=== PATIENT | female | born 1980 | race Caucasian/White ===

== ENCOUNTER 2017-02-26 12:42 | Emergency (ER) | payer SELFPAY ==
[~2017-02-26] VITALS: Ht 167.6 cm; Wt 69.5 kg
[~2017-02-26 12:42] MED LIST: BACTDS PO; CIPR500T4 PO; CYCL-319 PO; HYDR-906 PO; IBUP400T22 PO; NAPR-260 PO; PHEN-538 PO
[2017-02-26 12:43] VITALS: Ht 167.6 cm; Wt 69.5 kg
[2017-02-26] MEDS ORDERED: KETOROLAC 60 MG INJ IM STA (13:32)
[2017-02-26] MEDS ORDERED: IBUP-1542 PO (14:33)
[2017-02-26] MEDS ORDERED: BACL10TA PO (14:33)
--- NOTE | 2017-02-26 14:38 | ERD ---
ER Documentation Chief Complaint Date/Time DATE: 02/26/17 TIME: 14:35 Chief Complaint 06/01 neck pain x 1 week ukn cause HPI 36-year-old female patient with no significant past medical history presents to the ED complaining of neck and upper back pain that started 1 year ago. Reports that she started to have worsening neck and back pain that started 5 days ago. States that she has had a previous history of rotator cuff tear. Reports that when she moves her head to the left it starts to hurt more on the right trapezius muscle. Denies any fever, chills, neck stiffness. Denies any chest pain, shortness of breath, nausea, vomiting, decreased range of motion or loss of sensation. Denies any numbness or tingling. ROS All systems reviewed and are negative except as per history of present illness. Medications Home Meds Active Scripts Ibuprofen* (Motrin*) 600 Mg Tab, 600 MG PO Q6, #30 TAB Prov:HERMELINDA DURON PA-C 02/26/17 Baclofen* (Baclofen*) 10 Mg Tablet, 10 MG PO Q8, #20 TAB Prov:HERMELINDA DURON PA-C 02/26/17 Ibuprofen* (Motrin*) 400 Mg Tab, 400 MG PO Q6, #30 TAB 0 Refills Prov:AMAYA MONTOYA PA-C 11/04/15 Phenazopyridine Hcl* (Pyridium*) 200 Mg Tab, 200 MG PO TID Y for PAIN, #9 TAB 0 Refills Prov:AMAYA MONTOYA PA-C 11/04/15 Ciprofloxacin Hcl* (Ciprofloxacin Hcl*) 500 Mg Tablet, 500 MG PO BID, #14 TAB 0 Refills Prov:AMAYA MONTOYA PA-C 11/04/15 Sulfamethoxazole-Trimethoprim* (Bactrim* DS) 800-160 Mg Tab, 1 TAB PO BID, #20 TAB Prov:SANJUANITA HOOPER DO 06/15/15 Hydrocodone Bit-Acetaminophen ([place]) 5-325 Mg Tablet, 1 TAB PO Q4H Y for PAIN, #20 TAB Prov:GREENLAQUITASANJUANITA DO 06/15/15 Naproxen* (Naprosyn*) 500 Mg Tablet, 500 MG PO BID Y for PAIN AND/OR INFLAMMATION, #30 TAB Prov:TERRY ORTIZ NP 04/10/15 Cyclobenzaprine Hcl* (Cyclobenzaprine Hcl*) 10 Mg Tablet, 5 MG PO TID, #20 TAB Prov:TERRY ORTIZPorsha MONTOYA 04/10/15 Allergies Allergies: Coded Allergies: No Known Allergy (Unverified , 02/26/17) PMhx/Soc History of Surgery: Yes (removal of ovarian cyst and breast tumor) Anesthesia Reaction: No Hx Neurological Disorder: No Hx Respiratory Disorders: No Hx Cardiac Disorders: No Hx Alcohol Use: No Hx Substance Use: No Hx Tobacco Use: No Smoking Status: Never smoker Physical Exam Vitals Vital Signs Date Time Temp Pulse Resp B/P Pulse Ox O2 Delivery O2 Flow Rate FiO2 02/26/17 12:43 99.2 76 18 125/73 96 Physical Exam Const: [id number], well-nourished. In no acute distress. Head: Atraumatic, normocephalic Eyes: Normal Conjunctiva without injection. No purulent discharge. PERRL. EOMI ENT: Normal external ear. Ear canal without erythema. Tympanic membrane pearly moran without effusion or bulging. Nasal canal clear with normal turbinates. Moist oropharynx without tonsillar exudates. Non-erythematous pharynx. Uvula midline. No drooling. No trismus. Neck: Full range of motion. No meningismus. No cervical lymphadenopathy. Tenderness to palpation of the right trapezius muscle of the neck region. Resp: Clear to auscultation bilaterally. No wheezing, rhonchi, rales, or crackles. No accessory muscle use. No retractions. Cardio: Regular rate and rhythm. No murmurs, rubs or gallops. Abd: Soft, non tender, non distended. Normal bowel sounds. No palpable masses. No rebound tenderness. No guarding. Skin: No petechiae or rashes Back: No midline tenderness. No CVA tenderness. Ext: No cyanosis, or edema. Neur: Awake and alert. Psych: Normal Mood and Affect Results 24 hrs Current Medications Medications (Trade) Dose Ordered Sig/[place] Route PRN Reason Start Time Stop Time Status Last Admin Dose Admin Ketorolac Tromethamine (Toradol) 60 mg ONCE STAT IM 02/26/17 13:32 02/26/17 13:33 DC 02/26/17 13:52 Procedures/MDM This is a 36-year-old female patient with a past medical history of chronic neck and back pain that started 1 week ago. Patient is afebrile and nontoxic- appearing. Patient has normal vital signs. Patient was given Toradol here in the ED with slight improvement of her symptoms. Patient is appropriate for outpatient management. Patient was strictly instructed to follow-up with an orthopedic physician for further evaluation and treatment. Patient likely has musculoskeletal pain. Low suspicion for acute myocardial infarction, pneumothorax, pneumonia, cardiac tamponade, pulmonary embolism, pleural effusion , AAA, aortic dissection, Boerhaave's syndrome, cardiac dysrhythmias, meningitis, intracranial bleed, seizure, stroke, TIA or other emergent conditions. Patient's extremity symptoms have stabilized while they have been evaluated in the department and are appropriate for outpatient follow up. No evidence of fractures, dislocations, compartment syndrome, neurologic injury, vascular injury, open joint, open fracture, tendon laceration, septic arthritis , osteomyelitis, DVT, foreign body, or other emergent conditions. Discharge medications: Baclofen, Ibuprofen Follow up with primary care physician in 1-2 days. Instructed patient to return to the ED sooner for any worsening symptoms. Patient's questions were answered. Patient understood and agreed with discharge plan. Patient discharged stable. Departure Diagnosis: Primary Impression: Neck pain Condition: Stable Patient Instructions: Back And Neck Pain, General Referrals: COMMUNITY CLINICS YOU HAVE RECEIVED A MEDICAL SCREENING EXAM AND THE RESULTS INDICATE THAT YOU DO NOT HAVE A CONDITION THAT REQUIRES URGENT TREATMENT IN THE EMERGENCY DEPARTMENT. FURTHER EVALUATION AND TREATMENT OF YOUR CONDITION CAN WAIT UNTIL YOU ARE SEEN IN YOUR DOCTORS OFFICE WITHIN THE NEXT 1-2 DAYS. IT IS YOUR RESPONSIBILITY TO MAKE AN APPOINTMENT FOR FOLOW-UP CARE. IF YOU HAVE A PRIMARY DOCTOR --you should call your primary doctor and schedule an appointment IF YOU DO NOT HAVE A PRIMARY DOCTOR YOU CAN CALL OUR PHYSICIAN REFERRAL HOTLINE AT IF YOU CAN NOT AFFORD TO SEE A PHYSICIAN YOU CAN CHOSE FROM THE FOLLOWING [facility] CLINICS [facility] [address] [facility] [address] [facility]. [facility] [address] [facility] [address] [facility] [address] [facility]. [facility] [address] [facility]. [facility] YOU HAVE RECEIVED A MEDICAL SCREENING EXAM AND THE RESULTS INDICATE THAT YOU DO NOT HAVE A CONDITION THAT REQUIRES URGENT TREATMENT IN THE EMERGENCY DEPARTMENT. FURTHER EVALUATION AND TREATMENT OF YOUR CONDITION CAN WAIT UNTIL YOU ARE SEEN IN YOUR DOCTORS OFFICE WITHIN THE NEXT 1-2 DAYS. IT IS YOUR RESPONSIBILITY TO MAKE AN APPOINTMENT FOR FOLOW-UP CARE. IF YOU HAVE A PRIMARY DOCTOR --you should call your primary doctor and schedule and appointment IF YOU DO NOT HAVE A PRIMARY DOCTOR YOU CAN CALL OUR PHYSICIAN REFERRAL HOTLINE AT . IF YOU CAN NOT AFFORD TO SEE A PHYSICIAN YOU CAN CHOSE FROM THE FOLLOWING [facility] INSTITUTIONS[facility] [address] [place] [address] [facility] [address] [place] [address] [facility] [address] [place] [address] [facility]SPECIALTIES Additional Instructions: Call your primary care doctor TOMORROW for an appointment during the next 2-3 days.See the doctor sooner or return here if your condition worsens before your appointment time. HERMELINDA DURON PA-C Feb 26, 2017 14:38 HERMELINDA DURON PA-C Feb 26, 2017 14:38
== END 2017-02-26 15:00 | disposition home or self-care (01) ==
LOC: FTE 12:42
DX: M54.2 Cervicalgia (principal); Z85.3 Personal history of malignant neoplasm of breast
CPT/HCPCS: 96372; J1885

== ENCOUNTER 2017-05-08 09:50 | Emergency (ER) | payer OTHER ==
[~2017-05-08] VITALS: Ht 167.6 cm; Wt 67.5 kg
[~2017-05-08 09:50] MED LIST changes: +BACL10TA PO; +IBUP-1542 PO
[2017-05-08 09:57] VITALS: Ht 167.6 cm; Wt 67.5 kg
[2017-05-08] MEDS ORDERED: morphine 4 MG/ML VIAL IV STA (10:19)
[2017-05-08] MEDS ORDERED: ONDANSETRON 4 MG INJ IV STA (10:19)
[2017-05-08 10:54] LABS: BASOPHIL # 0.1 10^3/ul (0.0-0.1); EOSINOPHILS # 0.2 10^3/ul (0.0-0.5); EOSINOPHILS % 4.4 % (0.0-7.0); HEMATOCRIT 39.8 % (37.0-47.0); LYMPHOCYTES # 1.7 10^3/ul (0.8-2.9); LYMPHOCYTES % 36.1 % (15.0-51.0); MEAN CORPUSCULAR HEMOGLOBIN 31.1 pg (29.0-33.0); MEAN CORPUSCULAR HGB CONC 32.7 g/dl (32.0-37.0); MEAN CORPUSCULAR VOLUME 95.2 fl (82.0-101.0); MEAN PLATELET VOLUME 9.8 fl (7.4-10.4); MONOCYTE # 0.4 10^3/ul (0.3-0.9); MONOCYTES % 7.3 % (0.0-11.0); NEUTROPHIL # 2.4 10^3/ul (1.6-7.5); PLATELET COUNT 341 10^3/UL (140-415); RED BLOOD COUNT 4.18 10^6/ul (4.20-5.40); RED CELL DISTRIBUTION WIDTH 13.5 % (11.5-14.5); WHITE BLOOD COUNT 4.8 10^3/ul (4.8-10.8)
[2017-05-08 10:54] LABS: ADD UMIC NO; UR ASCORBIC ACID NEGATIVE (NEGATIVE); UR BILIRUBIN (Dip) NEGATIVE (NEGATIVE); UR BLOOD (Dip) NEGATIVE (NEGATIVE); UR CLARITY CLEAR (CLEAR); UR COLOR YELLOW (YELLOW); UR GLUCOSE (Dip) NEGATIVE (NEGATIVE); UR KETONES (Dip) NEGATIVE (NEGATIVE); UR LEUKOCYTE ESTERASE (Dip) NEGATIVE Leu/ul (NEGATIVE); UR NITRITE (Dip) NEGATIVE (NEGATIVE); UR SPECIFIC GRAVITY (Dip) 1.017 (1.003-1.030); UR TOTAL PROTEIN (Dip) NEGATIVE (NEGATIVE); UR UROBILINOGEN (Dip) NEGATIVE (NEGATIVE)
--- NOTE | 2017-05-08 11:03 | ERD ---
ER Documentation Chief Complaint Date/Time DATE: 05/08/17 TIME: 11:02 Chief Complaint ABDOMINAL PAIN, LOWER BACK PAIN X 3 DAYS HPI This is a 36-year-old female presenting to emergency department with midline lower back pain and lower abdominal pain 3 days. Patient states she is having constant, throbbing 8/10 mid lower back pain for several weeks and worsening of pain over the last 3 days. Patient states she also has suprapubic pelvic pain and lower abdominal pain for the last 3 days. Patient states she has had intermittent urinary incontinence and this is new for her. Patient has never been . Patient denies vomiting or diarrhea. No constipation. Last bowel movement was this morning. Last menstrual period 3-4 days ago. Patient states her menstrual cycles have been heavier and more painful than usual. ROS All systems reviewed and are negative except as per history of present illness. Medications Home Meds Active Scripts Ibuprofen* (Motrin*) 600 Mg Tab, 600 MG PO Q6, #30 TAB Prov:ARIANNA GARLAND NP 05/08/17 Hydrocodone/Acetaminophen ([place] 5-325 Tablet) 1 Each Tablet, 1 TAB PO Q6H Y for PAIN, #15 TAB Prov:ARIANNA GARLAND NP 05/08/17 Ibuprofen* (Motrin*) 600 Mg Tab, 600 MG PO Q6, #30 TAB Prov:HERMELINDA DURON PA-C 02/26/17 Baclofen* (Baclofen*) 10 Mg Tablet, 10 MG PO Q8, #20 TAB Prov:HERMELINDA DURON PA-C 02/26/17 Ibuprofen* (Motrin*) 400 Mg Tab, 400 MG PO Q6, #30 TAB 0 Refills Prov:AMAYA MONTOYA PA-C 11/04/15 Phenazopyridine Hcl* (Pyridium*) 200 Mg Tab, 200 MG PO TID Y for PAIN, #9 TAB 0 Refills Prov:AMAYA MONTOYA PA-C 11/04/15 Ciprofloxacin Hcl* (Ciprofloxacin Hcl*) 500 Mg Tablet, 500 MG PO BID, #14 TAB 0 Refills Prov:AMAYA MONTOYA PA-C 11/04/15 Sulfamethoxazole-Trimethoprim* (Bactrim* DS) 800-160 Mg Tab, 1 TAB PO BID, #20 TAB Prov:SANJUANITA HOOPER DO 06/15/15 Hydrocodone Bit-Acetaminophen ([place]) 5-325 Mg Tablet, 1 TAB PO Q4H Y for PAIN, #20 TAB Prov:SANJUANITA HOOPER DO 06/15/15 Naproxen* (Naprosyn*) 500 Mg Tablet, 500 MG PO BID Y for PAIN AND/OR INFLAMMATION, #30 TAB Prov:TERRY ORTIZ BREWING DIRECTOR 04/10/15 Cyclobenzaprine Hcl* (Cyclobenzaprine Hcl*) 10 Mg Tablet, 5 MG PO TID, #20 TAB Prov:TERRY ORTIZ BREWING DIRECTOR 04/10/15 Allergies Allergies: Coded Allergies: No Known Allergy (Unverified , 05/08/17) PMhx/Soc Medical and Surgical Hx: pt denies Medical Hx, pt denies Surgical Hx History of Surgery: Yes (removal of ovarian cyst and breast tumor) Anesthesia Reaction: No Hx Neurological Disorder: No Hx Respiratory Disorders: No Hx Cardiac Disorders: No Hx Alcohol Use: Yes (rarely) Hx Substance Use: No Hx Tobacco Use: No Smoking Status: Never smoker Physical Exam Vitals Vital Signs Date Time Temp Pulse Resp B/P Pulse Ox O2 Delivery O2 Flow Rate FiO2 05/08/17 17:11 98.7 61 18 115/75 98 Room Air 05/08/17 13:37 98.1 57 18 114/7 97 05/08/17 09:57 97.8 68 20 115/56 97 Physical Exam Const: No acute distress, alert Head: Atraumatic Eyes: Normal Conjunctiva ENT: Normal External Ears, Nose and Mouth. Neck: Full range of motion..~ No meningismus. Resp: Clear to auscultation bilaterally. No wheezing, rhonchi or crackles. Cardio: Regular rate and rhythm, no murmurs Abd: Soft, Suprapubic tenderness, non distended. Normal bowel sounds Skin: No petechiae or rashes Back: Midline lower spine tenderness.No CVA tenderness Ext: No cyanosis, or edema Neur: Awake and alert Psych: Normal Mood and Affect Result Diagram: 05/08/17 1039 05/08/17 1039 Results 24 hrs Laboratory Tests Test 05/08/17 10:36 05/08/17 10:39 Urine Color YELLOW Urine Clarity CLEAR Urine pH 7.0 Urine Specific [place] 1.017 Urine Ketones NEGATIVEmg/dL Urine Nitrite NEGATIVEmg/dL Urine Bilirubin NEGATIVEmg/dL Urine Urobilinogen NEGATIVEmg/dL Urine Leukocyte Esterase NEGATIVELeu/ul Urine Hemoglobin NEGATIVEmg/dL Urine Glucose NEGATIVEmg/dL Urine Total Protein NEGATIVEmg/dl White Blood Count 4.810^3/ul Red Blood Count 4.1810^6/ul Hemoglobin 13.0g/dl Hematocrit 39.8% Mean Corpuscular Volume 95.2fl Mean Corpuscular Hemoglobin 31.1pg Mean Corpuscular Hemoglobin Concent 32.7g/dl Red Cell Distribution Width 13.5% Platelet Count 25762^3/UL Mean Platelet Volume 9.8fl Neutrophils % 51.0% Lymphocytes % 36.1% Monocytes % 7.3% Eosinophils % 4.4% Basophils % 1.0% Nucleated Red Blood Cells % 0.0/100WBC Neutrophils # 2.410^3/ul Lymphocytes # 1.710^3/ul Monocytes # 0.410^3/ul Eosinophils # 0.210^3/ul Basophils # 0.110^3/ul Nucleated Red Blood Cells # 0.010^3/ul Sodium Level 140mmol/L Potassium Level 4.3mmol/L Chloride Level 109mmol/L Carbon Dioxide Level 26mmol/L Anion Gap 9 Blood Urea Nitrogen 12mg/dl Creatinine 0.72mg/dl Glucose Level 116mg/dl Calcium Level 9.3mg/dl Total Bilirubin 0.3mg/dl Direct Bilirubin 0.00mg/dl Indirect Bilirubin 0.3mg/dl Aspartate Amino Transf (AST/SGOT) 18IU/L Alanine Aminotransferase (ALT/SGPT) 36IU/L Alkaline Phosphatase 51IU/L Total Protein 6.6g/dl Albumin 4.0g/dl Globulin 2.60g/dl Albumin/Globulin Ratio 1.53 Lipase 78U/L Current Medications Medications (Trade) Dose Ordered Sig/[place] Route PRN Reason Start Time Stop Time Status Last Admin Dose Admin Morphine Sulfate (morphine) 4 mg ONCE STAT IV 05/08/17 10:19 05/08/17 10:24 DC 05/08/17 10:49 Ondansetron HCl (Zofran Inj) 4 mg ONCE STAT IV 05/08/17 10:19 05/08/17 10:24 DC 05/08/17 10:48 Procedures/MDM [place] [address] Radiology Main Line: [phone] DIAGNOSTIC IMAGING REPORT Patient: KYLE POON : 1980 Age: 36 Sex: F MR #: [id number] DOS: 05/08/17 1019 Ordering MD: ARIANNA JETT NP Location: [facility] Room/Bed: PROCEDURE: CT Lumbar Spine without intravenous contrast CLINICAL INDICATION: Pain and urinary incontinence. COMPARISON: None available. TECHNIQUE: Axial noncontrast CT images of the lumbar spine with coronal and sagittal reformats. DOSE ESTIMATE: CTDI vol = 11 mGy. DLP = 279 mGy-cm. One or more of the following dose reduction techniques were used: automated exposure control, adjustment of the mA and/or kV according to patient size, or use of iterative reconstruction. FINDINGS: Segmentation: For this report the last well-formed disc is labeled L5-S1. Alignment: Normal. Vertebrae: No fracture, vertebral body height loss, or destructive bone lesion. Discs: Minimal disc height loss at L1-L2. Degenerative change: T12-L1: No disc herniation. No spinal canal or foraminal narrowing. L1-L2: Mild disc height loss, anterior endplate spurring, and 2 mm disc bulge. No facet arthropathy. No significant central canal or foraminal narrowing. L2-L3: No disc herniation. No spinal canal or foraminal narrowing. L3-L4: 2 mm disc bulge with ligamentum flavum laxity. No significant central canal or foraminal narrowing. No facet arthropathy. L4-L5: No disc herniation. No spinal canal or foraminal narrowing. L5-S1: No disc herniation. No spinal canal or foraminal narrowing. Para-vertebral soft tissues: Normal. Visualized abdomen and pelvis: Normal. Additional comment: None. IMPRESSION: 1. Mild degenerative changes at L1-L2. 2. No significant central canal or foraminal narrowing. [place] [address] Radiology Main Line: [phone] DIAGNOSTIC IMAGING REPORT Patient: KYLE POON : 1980 Age: 36 Sex: F MR #: [id number] DOS: 05/08/17 1019 Ordering MD: ARIANNA JETT NP Location: [facility] [place] Room/Bed: PROCEDURE: CT Abdomen and Pelvis without contrast. CLINICAL INDICATION: Lumbar pain. Urinary incontinence. TECHNIQUE: CT scan of the abdomen and pelvis without contrast was performed on a multidetector high-resolution CT scanner. The patient was scanned without intravenous contrast. Coronal and sagittal reformatted images were obtained from the axial source images. Images were reviewed on a high-resolution PACS workstation. One or more of the following dose reduction techniques were used: Automated exposure control, adjustment of the mA and/or kV according to patient size, use of iterative reconstruction technique. The total exam CTDI equals 7.56 mGy and the total exam DLP equals 426.77 mGy-cm. COMPARISON: None. FINDINGS: CT abdomen: The lung bases are clear. The heart size is normal, without pericardial thickening or effusion. The liver is normal in size and density without focal mass or intrahepatic biliary dilatation. The spleen is normal in size and homogeneous in density. The stomach is grossly unremarkable. The pancreas as visualized is normal. The gallbladder and biliary tree are unremarkable and there is no evidence for biliary dilatation. The adrenal glands are symmetric and normal. Small 2 mm nonobstructive calculus is present in the superior pole of the left kidney there is no definite evidence of ureteral calculi or hydronephrosis. There is questionable duplicated left renal collecting system versus prominent column of [place]. The aorta is of normal caliber. There is no retroperitoneal lymphadenopathy. The dimitry hepatis region is clear. The small bowel and mesentery, as visualized , are unremarkable. There is a small fat-containing umbilical hernia. CT pelvis: A 5.1 x 6.8 x 5.6 cm hypodense lesion is present in the left adnexal region with possible eccentric septation or an adjacent smaller cyst. The small bowel loops situated within the pelvis are unremarkable. The pelvic sidewalls and inguinal regions are clear. The sigmoid colon and rectum are unremarkable. The appendix is normal. No mass, lymphadenopathy, or free fluid is seen. No acute inflammation is seen. The surrounding osseous structures are unremarkable. No osteolytic or osteoblastic lesion is detected. There is an 11.6 x 2.1 x 7.1 cm intermuscular lipoma in the left gluteal region. IMPRESSION: 1. Large left adnexal cystic lesion measuring 5.6 x 6.8 x 5.6 cm. Recommend initial further evaluation with pelvic ultrasound. 2. Small 2 mm nonobstructive left renal calculus. No evidence of ureteral calculus or hydronephrosis. 3. Questionable duplicated left renal collecting system versus prominent column of Jacinto. Duplicated renal collecting systems may result in incontinence in females. If there is further concern, consider CT urogram. 4. Small fat-containing umbilical hernia. 5. Left gluteal intermuscular lipoma. [place] [address] Radiology Main Line: [phone] DIAGNOSTIC IMAGING REPORT Patient: KYLE POON : 1980 Age: 36 Sex: F MR #: [id number] DOS: 05/08/17 1201 Ordering MD: ARIANNA JETT NP Location: [facility] Room/Bed: PROCEDURE: US Pelvis. CLINICAL INDICATION: pelvic pain TECHNIQUE: Multiple sonographic images of the pelvis were obtained utilizing a transabdominal technique. The images were reviewed on a PACS workstation. COMPARISON: None. FINDINGS: The uterus is normal in size with a normal appearance of the myometrium. The uterus measures 8.0 x 3.2 x 4.8 cm. The endometrial stripe is homogeneous in appearance and has the thickness of 3.6 mm. Normal Doppler flow is identified in both ovaries. The right ovary measures 2.8 x 2.5 x 2.9 cm. The left ovary measures 7.9 x 6.0 x 6.3 cm. There is a large 5.9 cm simple cyst in the left ovary. No free fluid is present within the pelvis. RPTAT: AA IMPRESSION: Large 5.9 cm simple cyst in the left ovary. Further evaluation with endovaginal examination is recommended. Continued follow-up is recommended. [place] [id number] Radiology Main Line: [phone] DIAGNOSTIC IMAGING REPORT Patient: KYLE POON : 1980 Age: 36 Sex: F MR #: [id number] DOS: 05/08/17 1353 Ordering MD: ARIANNA JETT NP Location: [facility] Room/Bed: PROCEDURE: MRI lumbar spine without contrast. CLINICAL INDICATION: Low back pain with urinary incontinence TECHNIQUE: Multiplanar MRI of the lumbar spine without contrast was performed on a 3.0 T scanner including the following sequences: T1-weighted, T2-weighted, proton density. COMPARISON: CT abdomen, lumbar spine 05/08/2017 FINDINGS: There is preservation of the lordosis of the lumbar spine. Alignment is intact. The vertebral bodies are maintained in height. Marrow signal intensity is unremarkable. Anterior osteophytes are seen at L1-2 and L3-4. There is relative mild disc space narrowing with decreased intranuclear T2- weighted signal intensity L1-2. The tip of the conus medullaris is visible at the L1 level and appears unremarkable. Large left adnexal, septated cystic lesion partially imaged measuring up to approximately 7 cm. T12-L1: No disc bulge or herniation is identified. There is no central canal stenosis or foraminal narrowing. L1-L2: There is minimal posterior disc bulging. There is no central canal stenosis or foraminal narrowing. L2-L3: No disc bulge or herniation is identified. There is no central canal stenosis or foraminal narrowing. L3-L4: No disc bulge or herniation is identified. There is no central canal stenosis or foraminal narrowing. L4-L5: No disc bulge or herniation is identified. There is no central canal stenosis or foraminal narrowing. L5-S1: No disc bulge or herniation is identified. There is mild facet arthropathy. There is no central canal stenosis or foraminal narrowing. IMPRESSION: 1. Mild lumbar spondylosis/degenerative enthesopathy as described above. 2. No central canal stenosis or foraminal narrowing. 3. Large septated left adnexal cystic lesion partially imaged. Again, follow- up with pelvic ultrasound is recommended. This is a 36-year-old female presenting to emergency department with midline lower back pain and suprapubic pelvic pain 2 weeks. Over the past 3 days pain has worsened. Patient has new onset urinary incontinence. Denies fevers or chills. No vomiting or diarrhea. No constipation. Last menstrual period was 4 days ago. Patient states menstrual period has been heavier and more painful than usual. Consulted Dr. Sol regarding this patient and we decided that labs, urine and CT lumbar and CT abdomen and pelvis should be ordered. An IV access was obtained per workforce staffing advisor and patient given 4 mg morphine and 4 mg Zofran IV. Labs drawn. CT lumbar spine reviewed by radiologist as mild degenerative changes at L1-L2. No significant central canal or foraminal narrowing. CT abdomen and pelvis reviewed by radiologist as large left adnexal cystic lesion measuring 5.6 x 6.8 x 5.6 cm. Small 2 mm nonobstructive left renal calculus. No evidence of ureteral calculus or hydronephrosis. Questionable duplicated left renal collecting system versus prominent column of Jac[place]. Duplicated renal collecting system may result in incontinence and females. Small fat-containing umbilical hernia. Left gluteal intramuscular lipoma. Consulted Dr. Charles regarding this patient and we agree that Lumbar spine MRI should be ordered for acute back pain with urinary inconcenecne. Lumbar spine MRI reviewed by radiologist as mild lumbar spondylosis/ degenerative enthesopathy as described above. No central canal stenosis or foraminal narrowing. Large septated left adnexal cystic lesion partially imaged. Again, follow-up with pelvic ultrasound is recommended. Pelvic US reviewed by radiologist as Large 5.9cm simple cyst in the left ovary. Normal Doppler flow is identified in both ovaries. Consulted Dr. Guadalupe, OBGYN who states that if patient's main is controleld and ther eis normal doppler flow to bilateral ovaries, then patient is appropriate for outpatient management with pain management and urgent OBGYN follow up. Upon reassessment, patient states pain has improved and patient is seen resting comfortably. Vitals are stable. Upon re-examination, patient also states that she has always had urinary problems and has seen multiple specialists for this, including urinary incontinence. Patient states that she was concerned because urinary incontinence has become worse in the past 3 days. Low suspicion for ovarian torsion, cauda equina syndrome, acute fracture, acute dislocation, epidural abscess, malignancy and AAA rupture. Differential Diagnosis includes but is not limited to ovarian cyst, back strain , vertebral fracture, herniated disc, spinal stenosis and nephrolithiasis. Patient is appropriate for outpatient management and will be given prescription for [place] 5/325mg #15 and ibuprofen. Instructed patient on urgent follow-up with [facility], urology and PCP in the next 1-2 days for reassessment and additional management. Resources provided. Patient given paper copies of all labs and imaging done here today. Return to ED for any high fever, chest pain, difficulty breathing, shortness breath, wheezing, vomiting, diarrhea, abdominal pain or any new or worsening symptoms. Patient verbalizes understanding. All questions answered at discharge. Disclaimer: Inadvertent spelling and grammatical errors are likely due to EHR/ dictation software use and do not reflect on the overall quality of patient care. Also, please note that the electronic time recorded on this note does not necessarily reflect the actual time of the patient encounter. Departure Diagnosis: Primary Impression: Ovarian cyst Laterality: left Qualified Code: N83.202 - Cyst of left ovary Condition: ARIANNA Romero NP May 08, 2017 11:03
[2017-05-08 11:14] LABS: ALBUMIN/GLOBULIN RATIO 1.53; BILIRUBIN,INDIRECT 0.3 mg/dl (0-1.1); BILIRUBIN,TOTAL 0.3 mg/dl (0.2-1.3); CALCIUM 9.3 mg/dl (8.4-10.2); CREATININE 0.72 mg/dl (0.44-1.00); POTASSIUM 4.3 mmol/L (3.5-5.1); TOTAL PROTEIN 6.6 g/dl (6.1-8.1)
--- NOTE | 2017-05-08 11:28 | RADRPT ---
PROCEDURE: CT Lumbar Spine without intravenous contrast CLINICAL INDICATION: Pain and urinary incontinence. COMPARISON: None available. TECHNIQUE: Axial noncontrast CT images of the lumbar spine with coronal and sagittal reformats. DOSE ESTIMATE: CTDI vol = 11 mGy. DLP = 279 mGy-cm. One or more of the following dose reduction te chniques were used: automated exposure control, adjustment of the mA and/or kV according to patient size, or use of iterative reconstruction. FINDINGS: Segmentation: For this report the last well-formed disc is labeled L5-S1. Alignment: Normal. Vertebrae: No fracture, vertebral body height loss, or destructive bone lesion. Discs: Minimal disc height loss at L1-L2. Degenerative change: T12-L1: No disc herniation. No spinal canal or foraminal narrowing. L1-L2: Mild disc height loss, anterior endplate spurring, and 2 mm disc bulge. No facet arthropathy. No significant central canal or foraminal narrowing. L2-L3: No disc herniation. No spinal canal or foraminal narrowing. L3-L4: 2 mm disc bulge with ligamentum flavum laxity. No significant central canal or foraminal narr owing. No facet arthropathy. L4-L5: No disc herniation. No spinal canal or foraminal narrowing. L5-S1: No disc herniation. No spinal canal or foraminal narrowing. Para-vertebral soft tissues: Normal. Visualized abdomen and pelvis: Normal. Additional comment: None. IMPRESSION: 1. Mild degenerative changes at L1-L2. 2. No significant central canal or foraminal narrowing. RPTAT: HLG Physician Alfa Date Time Electronically viewed and signed by Physician Alfa on 05/08/2017 11:28 LG/
--- NOTE | 2017-05-08 11:59 | RADRPT ---
PROCEDURE: CT Abdomen and Pelvis without contrast. CLINICAL INDICATION: Lumbar pain. Urinary incontinence. TECHNIQUE: CT scan of the abdomen and pelvis without contrast was performed on a multidetector hig h-resolution CT scanner. The patient was scanned without intravenous contrast. Coronal and sagittal reformatted images were obtained from the axial source images. Images were reviewed on a high-resol [employer] PACS workstation. One or more of the following dose reduction techniques were used: Automated exposure control, adjustment of the mA and/or kV according to patient size, use of iterative recon struction technique. The total exam CTDI equals 7.56 mGy and the total exam DLP equals 426.77 mGy-c m. COMPARISON: None. FINDINGS: CT abdomen: The lung bases are clear. The heart size is normal, without pericardial thickening or effusion. The liver is normal in size and density without focal mass or intrahepatic biliary dilatation. The spleen is normal in size and homogeneous in density. The stomach is grossly unremarkable. The panc reas as visualized is normal. The gallbladder and biliary tree are unremarkable and there is no tiesha dence for biliary dilatation. The adrenal glands are symmetric and normal. Small 2 mm nonobstructi ve calculus is present in the superior pole of the left kidney there is no definite evidence of uret eral calculi or hydronephrosis. There is questionable duplicated left renal collecting system versus prominent column of Jac[place]. The aorta is of normal caliber. There is no retroperitoneal lymphadenopathy. The dimitry hepatis reg ion is clear. The small bowel and mesentery, as visualized, are unremarkable. There is a small fat- containing umbilical hernia. CT pelvis: A 5.1 x 6.8 x 5.6 cm hypodense lesion is present in the left adnexal region with possible eccentric septation or an adjacent smaller cyst. The small bowel loops situated within the pelvis are unremark able. The pelvic sidewalls and inguinal regions are clear. The sigmoid colon and rectum are unremar kable. The appendix is normal. No mass, lymphadenopathy, or free fluid is seen. No acute inflammati on is seen. The surrounding osseous structures are unremarkable. No osteolytic or osteoblastic lesion is detec milan. There is an 11.6 x 2.1 x 7.1 cm intermuscular lipoma in the left gluteal region. IMPRESSION: 1. Large left adnexal cystic lesion measuring 5.6 x 6.8 x 5.6 cm. Recommend initial further evaluat ion with pelvic ultrasound. 2. Small 2 mm nonobstructive left renal calculus. No evidence of ureteral calculus or hydronephrosi s. 3. Questionable duplicated left renal collecting system versus prominent column of Jacinto. Duplicat ed renal collecting systems may result in incontinence in females. If there is further concern, cons ider CT urogram. 4. Small fat-containing umbilical hernia. 5. Left gluteal intermuscular lipoma. RPTAT: QQ .Alpesh Nicolas MD, Date Time Electronically viewed and signed by .Alpesh Nicolas MD, on 05/08/2017 11:58 .A/
--- NOTE | 2017-05-08 13:36 | RADRPT ---
PROCEDURE: US Pelvis. CLINICAL INDICATION: pelvic pain TECHNIQUE: Multiple sonographic images of the pelvis were obtained utilizing a transabdominal desmond hnique. The images were reviewed on a PACS workstation. COMPARISON: None. FINDINGS: The uterus is normal in size with a normal appearance of the myometrium. The uterus measures 8.0 x 3.2 x 4.8 cm. The endometrial stripe is homogeneous in appearance and has the thickness of 3.6 mm. Normal Doppler flow is identified in both ovaries. The right ovary measures 2.8 x 2.5 x 2.9 cm. The left ovary measures 7.9 x 6.0 x 6.3 cm. There is a large 5.9 cm simple cyst in the left ovary. No free fluid is present within the pelvis. RPTAT: AA IMPRESSION: Large 5.9 cm simple cyst in the left ovary. Further evaluation with endovaginal examination is recommended. Continued follow-up is recommended. .Abilio Kraft MD, Date Time Electronically viewed and signed by .Abilio Kraft MD, MD on 05/08/2017 13:36 .S/
--- NOTE | 2017-05-08 15:16 | RADRPT ---
PROCEDURE: MRI lumbar spine without contrast. CLINICAL INDICATION: Low back pain with urinary incontinence TECHNIQUE: Multiplanar MRI of the lumbar spine without contrast was performed on a 3.0 T scanner in cluding the following sequences: T1-weighted, T2-weighted, proton density. COMPARISON: CT abdomen, lumbar spine 05/08/2017 FINDINGS: There is preservation of the lordosis of the lumbar spine. Alignment is intact. The vertebral bodi es are maintained in height. Marrow signal intensity is unremarkable. Anterior osteophytes are seen at L1-2 and L3-4. There is relative mild disc space narrowing with decreased intranuclear T2-weight ed signal intensity L1-2. The tip of the conus medullaris is visible at the L1 level and appears unr emarkable. Large left adnexal, septated cystic lesion partially imaged measuring up to approximatel y 7 cm. T12-L1: No disc bulge or herniation is identified. There is no central canal stenosis or foraminal narrowing. L1-L2: There is minimal posterior disc bulging. There is no central canal stenosis or foraminal na rrowing. L2-L3: No disc bulge or herniation is identified. There is no central canal stenosis or foraminal narrowing. L3-L4: No disc bulge or herniation is identified. There is no central canal stenosis or foraminal narrowing. L4-L5: No disc bulge or herniation is identified. There is no central canal stenosis or foraminal narrowing. L5-S1: No disc bulge or herniation is identified. There is mild facet arthropathy. There is no haider tral canal stenosis or foraminal narrowing. IMPRESSION: 1. Mild lumbar spondylosis/degenerative enthesopathy as described above. 2. No central canal stenosis or foraminal narrowing. 3. Large septated left adnexal cystic lesion partially imaged. Again, follow-up with pelvic ultraso und is recommended. RPTAT: AA .Marcelo Tena MD, Date Time Electronically viewed and signed by .Marcelo Tena MD, on 05/08/2017 15:15 .O/
[2017-05-08] MEDS ORDERED: HYDR-906 PO (16:31)
[2017-05-08] MEDS ORDERED: IBUP-1542 PO (16:31)
[2017-05-08 17:11] VITALS: BP 115/75; PULSE 61; RESP 18; TEMP 98.7
== END 2017-05-08 17:12 | disposition home or self-care (01) ==
LOC: FTE 09:50
DX: N83.202 Unspecified ovarian cyst, left side (principal)
CPT/HCPCS: 36415; 72131; 72148; 74176; 76856; 80053; 81003; 83690; 85025; 96374; 96375; J2270; J2405; Z7502

== ENCOUNTER 2017-06-02 15:19 | Emergency (ER) | payer OTHER ==
[~2017-06-02] VITALS: Ht 167.6 cm; Wt 68.5 kg
[2017-06-02 15:34] VITALS: Ht 167.6 cm; Wt 68.5 kg
--- NOTE | 2017-06-02 18:50 | RADRPT ---
PROCEDURE: XR Foot. CLINICAL INDICATION: Right foot injury. Reference marker is noted towards the medial aspect of the head of the first metatarsal and towards the base of the lateral fifth metatarsal. TECHNIQUE: AP, lateral and oblique views of the right foot was obtained. The images were reviewed on a PACS workstation. COMPARISON: None. FINDINGS: The bones of the foot appear intact, with no evidence of fracture, dislocation, or subluxation. The joint spaces are preserved. Bone mineralization is normal. No significant soft tissue swelling is se en. IMPRESSION: Unremarkable right foot radiographs. RPTAT: [facility] Physician Linda Date Time Electronically viewed and signed by Physician Linda on 06/02/2017 18:49 RS/
--- NOTE | 2017-06-02 22:31 | ERD ---
ER Documentation Chief Complaint Date/Time DATE: 06/02/17 TIME: 22:28 Chief Complaint R. 1st & 2nd toe pain x 1 week HPI 36-year-old female patient with no significant past medical history presents to the ED complaining of having her right toes onto the floor. Reports that she was wearing high heels. States that she slipped off a step and actually stepped her toes. Describes the pain as sharp and rates it a 10 out of 10. Denies any ankle or knee injuries. Denies he denies any loss of consciousness. ROS All systems reviewed and are negative except as per history of present illness. Medications Home Meds Active Scripts Ibuprofen* (Motrin*) 600 Mg Tab, 600 MG PO Q6, #30 TAB Prov:ARIANNA GARLAND NP 05/08/17 Hydrocodone/Acetaminophen ([place] 5-325 Tablet) 1 Each Tablet, 1 TAB PO Q6H Y for PAIN, #15 TAB Prov:ARIANNA GARLAND NP 05/08/17 Ibuprofen* (Motrin*) 600 Mg Tab, 600 MG PO Q6, #30 TAB Prov:HERMELINDA DURON PA-C 02/26/17 Baclofen* (Baclofen*) 10 Mg Tablet, 10 MG PO Q8, #20 TAB Prov:HERMELINDA DURON PA-C 02/26/17 Ibuprofen* (Motrin*) 400 Mg Tab, 400 MG PO Q6, #30 TAB 0 Refills Prov:AMAYA MONTOYA PA-C 11/04/15 Phenazopyridine Hcl* (Pyridium*) 200 Mg Tab, 200 MG PO TID Y for PAIN, #9 TAB 0 Refills Prov:AMAYA MONTOYA PA-C 11/04/15 Ciprofloxacin Hcl* (Ciprofloxacin Hcl*) 500 Mg Tablet, 500 MG PO BID, #14 TAB 0 Refills Prov:AMAYA MONTOYA PA-C 11/04/15 Sulfamethoxazole-Trimethoprim* (Bactrim* DS) 800-160 Mg Tab, 1 TAB PO BID, #20 TAB Prov:SANJUANITA HOOPER DO 06/15/15 Hydrocodone Bit-Acetaminophen ([place]) 5-325 Mg Tablet, 1 TAB PO Q4H Y for PAIN, #20 TAB Prov:SANJUANITA HOOPER DO 06/15/15 Naproxen* (Naprosyn*) 500 Mg Tablet, 500 MG PO BID Y for PAIN AND/OR INFLAMMATION, #30 TAB Prov:TERRY ORTIZ DIRECTOR OF PRECLINICAL RESEARCH 04/10/15 Cyclobenzaprine Hcl* (Cyclobenzaprine Hcl*) 10 Mg Tablet, 5 MG PO TID, #20 TAB Prov:TERRY ORTIZ DIRECTOR OF PRECLINICAL RESEARCH 04/10/15 Allergies Allergies: Coded Allergies: No Known Allergy (Unverified , 05/08/17) PMhx/Soc History of Surgery: Yes (removal of ovarian cyst and breast tumor) Anesthesia Reaction: No Hx Neurological Disorder: No Hx Respiratory Disorders: No Hx Cardiac Disorders: No Hx Alcohol Use: Yes (rarely) Hx Substance Use: No Hx Tobacco Use: No Smoking Status: Never smoker Physical Exam Vitals Vital Signs Date Time Temp Pulse Resp B/P Pulse Ox O2 Delivery O2 Flow Rate FiO2 06/02/17 15:34 97.3 85 16 132/76 97 Physical Exam Const: [id number], well-nourished. In no acute distress. Head: Atraumatic, normocephalic Eyes: Normal Conjunctiva without injection ENT: Normal external ear, nose and mouth. Neck: Full range of motion. No meningismus. Resp: Clear to auscultation bilaterally. No wheezing, rhonchi, rales, or crackles. No accessory muscle use. No retractions. Cardio: Regular rate and rhythm, no murmurs Skin: No petechiae or rashes Back: No midline tenderness. No CVA tenderness. Ext: No cyanosis, or edema. Cap refill less than 2 seconds. Distal pulses intact bilaterally. Tenderness to palpation of the right great toe, second toe and right lateral distal fifth metatarsal. No tenderness palpation of the bilateral lateral malleolus. Patient was able to plantar flex and dorsiflex her bilateral ankles. Neur: Awake and alert. Normal gait and coordination. Muscle strength 5/5. Sensation intact bilaterally. Psych: Normal Mood and Affect Procedures/MDM 28-year-old female patient with no significant past medical history presents to the ED complaining of right great toe and second toe pain that started 1 week ago due to stubbing her toes. Patient is afebrile and nontoxic-appearing. Patient has normal vital signs. A right foot x-ray was ordered to further evaluate patient. No fractures or dislocations noted. Patient is placed in a tobi tape splint of her right great toe and second toe. Patient was also given an Javy wrap. Crutches were given to patient to help with ambulation. Splint Assessment: Neurovascularly intact pre and post splint placement with good fit. Patient likely sustained a foot contusion vs. foot sprain. Patient's extremity symptoms have stabilized while they have been evaluated in the department and are appropriate for outpatient follow up. No evidence of fractures, dislocations, compartment syndrome, neurologic injury, vascular injury, open joint, open fracture, tendon laceration, septic arthritis, osteomyelitis, DVT, foreign body, or other emergent conditions. Follow up with primary care physician in 1-2 days for a referral to an orthopedic physician if symptoms do not improve. Instructed patient to return to the ED sooner for any worsening symptoms. Patient's questions were answered. Patient understood and agreed with discharge plan. Patient discharged stable. Departure Diagnosis: Primary Impression: Injury of foot Encounter type: initial encounter Laterality: right Qualified Code: S99.921A - Injury of right foot, initial encounter Condition: Stable Patient Instructions: Contusion, Foot, Sprain Foot Referrals: [facility] YOU HAVE RECEIVED A MEDICAL SCREENING EXAM AND THE RESULTS INDICATE THAT YOU DO NOT HAVE A CONDITION THAT REQUIRES URGENT TREATMENT IN THE EMERGENCY DEPARTMENT. FURTHER EVALUATION AND TREATMENT OF YOUR CONDITION CAN WAIT UNTIL YOU ARE SEEN IN YOUR DOCTORS OFFICE WITHIN THE NEXT 1-2 DAYS. IT IS YOUR RESPONSIBILITY TO MAKE AN APPOINTMENT FOR FOLOW-UP CARE. IF YOU HAVE A PRIMARY DOCTOR --you should call your primary doctor and schedule an appointment IF YOU DO NOT HAVE A PRIMARY DOCTOR YOU CAN CALL OUR PHYSICIAN REFERRAL HOTLINE AT IF YOU CAN NOT AFFORD TO SEE A PHYSICIAN YOU CAN CHOSE FROM THE FOLLOWING [facility] [address] [facility]. [facility] [address] [facility] [place] [address] [facility] [address] [facility] [address] [facility]. [facility]. [address] [facility]. [facility] YOU HAVE RECEIVED A MEDICAL SCREENING EXAM AND THE RESULTS INDICATE THAT YOU DO NOT HAVE A CONDITION THAT REQUIRES URGENT TREATMENT IN THE EMERGENCY DEPARTMENT. FURTHER EVALUATION AND TREATMENT OF YOUR CONDITION CAN WAIT UNTIL YOU ARE SEEN IN YOUR DOCTORS OFFICE WITHIN THE NEXT 1-2 DAYS. IT IS YOUR RESPONSIBILITY TO MAKE AN APPOINTMENT FOR FOLOW-UP CARE. IF YOU HAVE A PRIMARY DOCTOR --you should call your primary doctor and schedule and appointment IF YOU DO NOT HAVE A PRIMARY DOCTOR YOU CAN CALL OUR PHYSICIAN REFERRAL HOTLINE AT . IF YOU CAN NOT AFFORD TO SEE A PHYSICIAN YOU CAN CHOSE FROM THE FOLLOWING [facility]STITUTIONS: [facility] [address] [place] [address] [facility] [address] [place] [address] [facility] [address] [place] [address] [facility] URGENT CARE/SPECIALTIES Additional Instructions: Call your primary care doctor TOMORROW for an appointment during the next 2-3 days for a referral to an orthopedic physician if symptoms do not improve.See the doctor sooner or return here if your condition worsens before your appointment time. HERMELINDA DURON PA-C Jun 02, 2017 22:31
== END 2017-06-02 19:39 | disposition left against medical advice (07) ==
LOC: FTE 15:19
DX: S99.921A Unspecified injury of right foot, initial encounter (principal); W10.9XXA Fall (on) (from) unspecified stairs and steps, initial encounter; Y92.9 Unspecified place or not applicable
CPT/HCPCS: 73630; Z7502

== ENCOUNTER 2017-07-18 17:42 | Emergency (ER) | payer OTHER ==
[~2017-07-18] VITALS: Ht 167.6 cm; Wt 68.4 kg
[2017-07-18 17:45] VITALS: Ht 167.6 cm; Wt 68.4 kg
--- NOTE | 2017-07-18 18:04 | ERD ---
ER Documentation Chief Complaint Chief Complaint neck shoulder & ears pain x 1wk HPI 37-year-old female, with history of chronic back pain presents to the emergency department complaining of 2 weeks of worsening of neck pain. The pain is described as dull, 7/10, radiated to bilateral shoulders, worsened by head and neck flexion. The patient has tried ibuprofen with minimal relief of the symptoms. Denies weakness, numbness, tingling. No history of recent trauma. History provided by patient ROS SYSTEMIC symptoms: no fever, chills, no night sweats, no weight loss EYE symptoms: No blurred vision, no eye discharge OTOLARYNGEAL symptoms: No hearing loss. No ear pain, no sore throat CARDIOVASCULAR symptoms: No chest pain or discomfort, no palpitations. PULMONARY symptoms: No dyspnea, no cough, no wheezing. GASTROINTESTINAL symptoms: No abdominal pain, no nausea, no vomiting, no diarrhea MUSCULOSKELETAL symptoms: Per HPI NEUROLOGY symptoms: No confusion, no syncope, no numbness or tingling. SKIN: No rashes Medications Home Meds Active Scripts Baclofen* (Baclofen*) 10 Mg Tablet, 10 MG PO TID for MUSCLE SPASMS, #20 TAB Prov:KRISTIN PADILLA MD 07/18/17 Hydrocodone/Acetaminophen ([place] 5-325 Tablet) 1 Each Tablet, 1 TAB PO Q6H Y for PAIN, #20 TAB Prov:KRISTIN PADILLA MD 07/18/17 Ibuprofen* (Motrin*) 600 Mg Tab, 600 MG PO Q6, #30 TAB Prov:ARIANNA GARLAND NP 05/08/17 Hydrocodone/Acetaminophen ([place] 5-325 Tablet) 1 Each Tablet, 1 TAB PO Q6H Y for PAIN, #15 TAB Prov:ARIANNA GARLAND NP 05/08/17 Ibuprofen* (Motrin*) 600 Mg Tab, 600 MG PO Q6, #30 TAB Prov:HERMELINDA DURON PA-C 02/26/17 Baclofen* (Baclofen*) 10 Mg Tablet, 10 MG PO Q8, #20 TAB Prov:HERMELINDA DURON PA-C 02/26/17 Ibuprofen* (Motrin*) 400 Mg Tab, 400 MG PO Q6, #30 TAB 0 Refills Prov:AMAYA MONTOYA PA-C 3/14/16 Phenazopyridine Hcl* (Pyridium*) 200 Mg Tab, 200 MG PO TID Y for PAIN, #9 TAB 0 Refills Prov:LINDSAYAMAYA PA-C 11/04/15 Ciprofloxacin Hcl* (Ciprofloxacin Hcl*) 500 Mg Tablet, 500 MG PO BID, #14 TAB 0 Refills Prov:LINDSAYAMAYA TOWNSEND 11/04/15 Sulfamethoxazole-Trimethoprim* (Bactrim* DS) 800-160 Mg Tab, 1 TAB PO BID, #20 TAB Prov:SANJUANITA HOOPER DO 06/15/15 Hydrocodone Bit-Acetaminophen ([place]) 5-325 Mg Tablet, 1 TAB PO Q4H Y for PAIN, #20 TAB Prov:SANJUANITA HOOPER DO 06/15/15 Naproxen* (Naprosyn*) 500 Mg Tablet, 500 MG PO BID Y for PAIN AND/OR INFLAMMATION, #30 TAB Prov:TERRY ORTIZ NP 04/10/15 Cyclobenzaprine Hcl* (Cyclobenzaprine Hcl*) 10 Mg Tablet, 5 MG PO TID, #20 TAB Prov:TERRY ORTIZ NP 04/10/15 Allergies Allergies: Coded Allergies: No Known Allergy (Unverified , 05/08/17) PMhx/Soc History of Surgery: Yes (removal of ovarian cyst and breast tumor) Anesthesia Reaction: No Hx Neurological Disorder: No Hx Respiratory Disorders: No Hx Cardiac Disorders: No Hx Alcohol Use: Yes (rarely) Hx Substance Use: No Hx Tobacco Use: No Physical Exam Vitals Vital Signs Date Time Temp Pulse Resp B/P Pulse Ox O2 Delivery O2 Flow Rate FiO2 07/18/17 17:45 98.0 81 18 121/74 97 Physical Exam Patient is in no acute distress, vital signs stable. Alert and fully oriented. EYES: PERRLA, EOMI, Sclera and conjunctiva appear normal. EARS: Canals clear, tympanic membranes WNL THROAT: Normal oropharynx. NECK: Supple, No lymphadenopathy. Full ROM without pain or tenderness. HEART: RRR, no rubs, murmurs, clicks or gallops. LUNGS: Clear to auscultation. ABDOMEN: Soft, non-tender without masses or hepatosplenomegaly. EXTREMITIES: No edema bilaterally. BACK: Full ROM, no deformity, normal back exam NEURO: Cranial nerves grossly intact, no motor or sensory deficit Results 24 hrs Current Medications Medications (Trade) Dose Ordered Sig/[place] Route PRN Reason Start Time Stop Time Status Last Admin Dose Admin Ketorolac Tromethamine (Toradol) 60 mg ONCE STAT IM 07/18/17 18:19 07/18/17 18:21 DC 07/18/17 18:28 [place] [id number] Radiology Main Line: [phone] DIAGNOSTIC IMAGING REPORT Patient: KYLE POON : 1980 Age: 37 Sex: F MR #: [id number] DOS: 07/18/17 1815 Ordering MD: KRISTIN PADILLA MD Location: [facility] Room/Bed: PROCEDURE: XR Cervical Spine. CLINICAL INDICATION: Trauma, pain. TECHNIQUE: Three views of the cervical spine. COMPARISON: None. FINDINGS: There is reversal the cervical lordosis. No spondylolisthesis is seen. The vertebral body heights are maintained. No acute fracture or subluxation is identified. The prevertebral soft tissues are normal. There are no significant degenerative changes. The visualized aerodigestive tract is normal. IMPRESSION: 1. No acute fracture or subluxation of the cervical spine. 2. Reversal of the cervical lordosis. RPTAT: HTAR .Reuben Verduzco MD, MD Date Time Electronically viewed and signed by .Reuben Verudzco MD, MD on 07/18/2017 19:33 .R/ CC: KRISTIN PADILLA MD Procedures/MDM 37y/o female patient with history of chronic back pain, presents to the ED c/o pain worsening of neck pain for 2 weeks. Vital signs stable, Physical exam unremarkable, except for bilateral cervical muscle spasm, neurovascular exam intact. Differential diagnosis include but not limited to: Acute musculoskeletal injury, herniated disc, arthritis, degenerative disc disease. Low suspicion for vertebral fracture. Pertinent Data: Radiology: 1. No acute fracture or subluxation of the cervical spine. 2. Reversal of the cervical lordosis. Physical examination and clinical presentation consistent most likely with neck muscle spasm. During the ED course the patient remained stable, no new complaints. Received treatment with Toradol IM presenting overall improvement of the symptoms. Results and clinical impression discussed with patient who agrees with management. The patient is stable to be treated outpatient and will be discharged home with a Rx for [place] and baclofen, recommendation for referral with orthopedic surgeon and chronic pain management Side effects of prescribed medications (headache, rash, nausea, vomiting, diarrhea) were reviewed. Side effects of prescribed opiates (drowsiness, habituation) were reviewed. Side effects of prescribed NSAID medication (GI distress, edema, bleeding, HTN) were reviewed. The patient was instructed to follow up with the primary care provider in the next 48h. If symptoms persist, worsen or new symptoms develop, then patient should return to the ED immediately. Instructions explained and given to patient in Yoruba with acknowledgment and demonstrated understanding. Disclaimer: Inadvertent spelling and grammatical errors are likely due to EHR/ dictation software use and do not reflect on the overall quality of patient care. Also, please note that the electronic time recorded on this note does not necessarily reflect the actual time of the patient encounter. Departure Diagnosis: Primary Impression: Neck pain Condition: Stable Additional Instructions: Call your primary care doctor TOMORROW for an appointment during the next 1-2 days. See the doctor sooner or return here if your condition worsens before your appointment time. Thank you very much for allowing us to participate in your care. Your health and safety is our top priority at [facility]. Have prescriptions filled and follow precisely the directions on the label. Follow-up with primary care provider during the next 4 days and bring all the information and medications prescribed. If illness has not improved in 2 days, then make an appointment with primary care provider. If the provider is unavailable, return to the Emergency Department immediately. KRISTIN PADILLA MD Jul 18, 2017 18:04
[2017-07-18] MEDS ORDERED: KETOROLAC 60 MG INJ IM STA (18:19)
--- NOTE | 2017-07-18 19:33 | RADRPT ---
PROCEDURE: XR Cervical Spine. CLINICAL INDICATION: Trauma, pain. TECHNIQUE: Three views of the cervical spine. COMPARISON: None. FINDINGS: There is reversal the cervical lordosis. No spondylolisthesis is seen. The vertebral body heights are maintained. No acute fracture or subluxation is identified. The prevertebral soft tissues are normal. There are no significant degenerative changes. The visualized aerodigestive tract is tone l. IMPRESSION: 1. No acute fracture or subluxation of the cervical spine. 2. Reversal of the cervical lordosis. RPTAT: HTAR .Reuben Verduzco MD, Date Time Electronically viewed and signed by .Reuben Verduzco MD, on 07/18/2017 19:33 .R/
[2017-07-18] MEDS ORDERED: BACL10TA PO (19:44)
[2017-07-18] MEDS ORDERED: HYDR-906 PO (19:44)
[2017-07-18 20:03] VITALS: BP 128/75; PULSE 89; RESP 18; TEMP 98.6
== END 2017-07-18 20:04 | disposition home or self-care (01) ==
LOC: FTE 17:42
DX: M54.2 Cervicalgia (principal)
CPT/HCPCS: 72050; 96372; J1885; Z7502

== ENCOUNTER 2018-06-10 13:15 | Emergency (ER) | END 2018-06-10 16:39 | disposition home or self-care (01) ==

== ENCOUNTER 2019-05-08 22:36 | Emergency (ER) | payer SELFPAY ==
[~2019-05-08] VITALS: Ht 167.6 cm; Wt 71.1 kg
[~2019-05-08 22:36] MED LIST changes: +CEPH500C PO; -CYCL-319 PO; +CYCL10TA7 PO; +HYDR-4011 PO; +IBUP-1561 PO; -IBUP400T22 PO; -NAPR-260 PO; +NAPR-985 PO; +SULF1TAB31 PO
[2019-05-08 22:41] VITALS: BP 124/72; PULSE 88; RESP 16; Ht 167.6 cm; Wt 71.1 kg
== END 2019-05-09 00:45 | disposition left against medical advice (07) ==
LOC: FTE 22:36
DX: Z53.21 Procedure and treatment not carried out due to patient leaving prior to being seen by health care provider (principal)